=== PATIENT | female | born 1950 | race Caucasian/White ===

== ENCOUNTER 2017-01-26 22:51 | Inpatient (IN) | payer OTHER ==
[~2017-01-26] VITALS: Ht 154.9 cm; Wt 72.8 kg
[~2017-01-26 22:51] MED LIST: ASPIRIN E.C. 8181 MG PO; ATORVASTATIN; CELEXA; CLARITIN 1010 MG/TAB PO; ECOTRIN325 MG PO; HCTZ; HCTZ 25MG TAB25 MG PO; MOBIC15 MG PO; PERCOCET 325 MG1 TA2 PO; PERCOCET 500 MG1 TAB PO; PHENERGAN 25 TA25 MG PO; PHENERGAN25 MG RC; TOPROL XL 50MG50 MG PO; TOPROL XL25 MG PO; VESICARE; VICODIN 5/5001 UDTAB PO; ZOVIRAX400 M1 PO
[2017-01-26 23:50] LABS: BASO % 0.5 % (0.0-2.0); EOS # 0.2 (0.0-0.7); EOS % 1.8 % (0-4.0); GRAN # 6.7 (1.4-6.5); GRAN % 79.9 % (42.2-75.2); HEMATOCRIT 37.7 % (37.0-47.0); LYMPH % 11.7 % (20.0-51.0); MEAN CELL VOLUME 88 fl (80.0-100.0); MEAN CORPUSCULAR HEMOGLOBIN 30 pg (27.0-31.0); MEAN CORPUSCULAR HGB CONC 35 g/dl (33.0-37.0); MEAN PLATELET VOLUME 8.8 fl (7.4-10.4); MONO # 0.4 (0.1-0.6); MONO % 5.3 % (1.7-9.3); PLATELET COUNT 390 K/mm3 (130-400); RED BLOOD COUNT 4.28 M/mm3 (4.10-5.30); REDCELL DISTRIBUTION WIDTH-CV 12.9 % (11.5-14.5); WHITE BLOOD COUNT 8.4 K/mm3 (4.8-10.8)
[2017-01-26] MEDS ORDERED: HYZAAR 50-12.1 UDTAB (23:51)
[2017-01-26 23:55] LABS: INR 1.2 (0.8-3.0)
[2017-01-27] VITALS (14 sets, daily range): BP systolic 110–153; BP diastolic 28–90; PULSE 66–82; TEMP 97.2–98.9
[2017-01-27] LABS: ADJUSTED CALCIUM 8.9 mg/dL (8.4-10.2); ALBUMIN 4.5 gm/dL (3.5-5.0); BILIRUBIN,TOTAL 0.4 mg/dL (0.0-1.0); CALCIUM 9.3 mg/dL (8.4-10.2); CREATININE, serum 0.73 mg/dL (0.52-1.25); POTASSIUM 3.5 mmol/L (3.4-5.0); TOTAL PROTEIN 7.4 gm/dL (6.4-8.2)
[2017-01-27 02:33] LABS: PH 6 (5-8); SQUAMOUS EPITHELIAL None Seen /hpf; URINE APPEARANCE Clear; URINE BACTERIA None Seen /hpf; URINE BILIRUBIN Negative (NEGATIVE); URINE BLOOD 2+ (NEGATIVE); URINE COLOR Yellow; URINE GLUCOSE Negative (NEGATIVE); URINE KETONE Negative (NEGATIVE); URINE UROBILINOGEN Negative (NEGATIVE); URINE WBC 0-2 /hpf
[2017-01-27 06:44] LABS: CALCIUM 9.1 mg/dL (8.4-10.2); CREATININE, serum 0.64 mg/dL (0.52-1.25); POTASSIUM 3.5 mmol/L (3.4-5.0)
[2017-01-28 01:10] VITALS: BP 141/70; PULSE 61; TEMP 98.7
[2017-01-28 05:38] VITALS: BP 130/72; PULSE 66; TEMP 98.2
[2017-01-28 08:02] LABS: HEMATOCRIT 30.8 % (37.0-47.0); HEMOGLOBIN 10.6 g/dl (12.5-16.0)
[2017-01-28 08:09] LABS: CALCIUM 8.9 mg/dL (8.4-10.2); CREATININE, serum 0.62 mg/dL (0.52-1.25); POTASSIUM 3.2 mmol/L (3.4-5.0)
[2017-01-28 10:30] VITALS: BP 133/69; PULSE 64; TEMP 99.5
[2017-01-28 14:30] VITALS: BP 126/55; PULSE 69; TEMP 97.5
[2017-01-28 17:42] VITALS: BP 136/65; PULSE 77; TEMP 97.2
[2017-01-28 22:02] VITALS: BP 129/55; PULSE 70; TEMP 98.3
[2017-01-29 04:35] VITALS: BP 138/67; PULSE 83; TEMP 98.3
[2017-01-29 08:18] LABS: HEMATOCRIT 31.4 % (37.0-47.0); HEMOGLOBIN 10.8 g/dl (12.5-16.0)
[2017-01-29 08:30] LABS: CALCIUM 8.9 mg/dL (8.4-10.2); CREATININE, serum 0.7 mg/dL (0.52-1.25); POTASSIUM 3.2 mmol/L (3.4-5.0)
[2017-01-29 10:17] VITALS: BP 112/62; PULSE 70; TEMP 98.2
[2017-01-29 14:26] VITALS: BP 125/66; PULSE 77; TEMP 97.8
[2017-01-29 17:50] VITALS: BP 123/56; PULSE 75; TEMP 97.8
[2017-01-29 21:23] VITALS: BP 111/60; PULSE 78; TEMP 99
[2017-01-30 06:23] VITALS: BP 127/60; PULSE 75; TEMP 98.5
[2017-01-30] MEDS ORDERED: ASPI325T6 PO (08:44)
[2017-01-30] MEDS ORDERED: TYLENOL 325MG325 MG PO (08:45)
[2017-01-30] MEDS ORDERED: NORCO 325 MG-51 TAB PO (08:46)
[2017-01-30 09:28] VITALS: BP 111/77; PULSE 87; TEMP 97.5
== END 2017-01-30 11:15 | disposition home health service (06) | DRG 481 ==
LOC: COL.ER 22:51 → SURG 23:40
PROVIDERS: Emergency Medicine; Nurse Practitioner Family; Orthopaedic Surgery
PROC: 0QH706Z Insertion of Intramedullary Internal Fixation Device into Left Upper Femur, Open Approach (ICD-10-PCS; principal; 2017-01-27 13:30)
DX: S72.145A Nondisplaced intertrochanteric fracture of left femur, initial encounter for closed fracture (principal); E87.1 Hypo-osmolality and hyponatremia; I10 Essential (primary) hypertension; E87.6 Hypokalemia; F17.210 Nicotine dependence, cigarettes, uncomplicated; V02.00XA Pedestrian on foot injured in collision with two- or three-wheeled motor vehicle in nontraffic accident, initial encounter
CPT/HCPCS: 99232-AI; 99239; A4315; A9284; C1713; J0690; J1100; J1170; J1200; J2060; J2250; J2270; J2704; J3010; J7030

== ENCOUNTER 2017-04-24 10:00 | Outpatient (RCR) | payer OTHER ==
[~2017-04-24 10:00] MED LIST changes: +ASPI325T6 PO; +HYZAAR 50-12.1 UDTAB; +NORCO 325 MG-51 TAB PO; +TYLENOL 325MG325 MG PO
== END 2017-04-25 08:57 | disposition still patient (30) ==
LOC: MKS.ESL.PT 10:00
DX: S72.002D Fracture of unspecified part of neck of left femur, subsequent encounter for closed fracture with routine healing (principal); Z74.09 Other reduced mobility; Z98.890 Other specified postprocedural states

== ENCOUNTER → 2017-06-09 | Outpatient (CLI) | payer MEDICARE, OTHER | LOC: COL.LAB 11:07 | DX: Z01.812 Encounter for preprocedural laboratory examination (principal) ==

== ENCOUNTER 2017-06-12 10:08 | Outpatient (RCR) | payer MEDICARE, OTHER | END 2017-06-13 10:23 | disposition home or self-care (01) | LOC: MKS.ESL.PT 10:08 | DX: Z01.818 Encounter for other preprocedural examination (principal) | CPT/HCPCS: G8978-GP; G8979-GP; G8980-GP ==

== ENCOUNTER 2017-09-13 10:00 | Outpatient (RCR) | payer MEDICARE, OTHER | END 2017-09-14 08:22 | disposition home or self-care (01) | LOC: MKS.ESL.PT 10:00 | DX: Z47.1 Aftercare following joint replacement surgery (principal); Z96.652 Presence of left artificial knee joint | CPT/HCPCS: G8978-GP; G8979-GP; G8980-GP ==

== ENCOUNTER 2018-07-19 11:15 | Outpatient (RCR) | payer MEDICARE, OTHER | END 2018-08-26 | disposition home or self-care (01) | LOC: MKS.ESL.PT | DX: Z47.1 Aftercare following joint replacement surgery (principal); Z96.651 Presence of right artificial knee joint | CPT/HCPCS: G8978-GP; G8979-GP ==

== ENCOUNTER → 2018-09-25 | Outpatient (CLI) | payer MEDICARE, OTHER | LOC: MC.RAD 10:48 | DX: Z12.31 Encounter for screening mammogram for malignant neoplasm of breast (principal) ==

== ENCOUNTER → 2019-12-24 | Outpatient (CLI) | payer MEDICARE, OTHER | LOC: MC.RAD 14:20 | DX: Z12.31 Encounter for screening mammogram for malignant neoplasm of breast (principal) ==

== ENCOUNTER → 2021-05-18 | Outpatient (CLI) | payer MEDICARE | LOC: COL.RAD 12:37 | DX: Z12.2 Encounter for screening for malignant neoplasm of respiratory organs (principal); Z87.891 Personal history of nicotine dependence ==

== ENCOUNTER → 2021-06-10 | Outpatient (CLI) | payer MEDICARE | LOC: MC.RAD 11:02 | DX: Z12.31 Encounter for screening mammogram for malignant neoplasm of breast (principal); I10 Essential (primary) hypertension ==

== ENCOUNTER → 2023-08-05 | Outpatient (CLI) | payer MEDICARE | LOC: MC.RAD 12:00 | DX: Z12.31 Encounter for screening mammogram for malignant neoplasm of breast (principal) ==